=== PATIENT | male | born 2000 | race Caucasian/White ===

== ENCOUNTER 2024-03-30 22:22 | Emergency (ER) | payer OTHER ==
[2024-03-30 22:55] VITALS: TEMP 97.5
[2024-03-30] MEDS: HYDROmorphone 1 MG/ML 1 ML SYRINGE IM STA (23:35)
[2024-03-30] MEDS: DEXAMETHASONE SOD PHOSPHATE 10 MG/ML 1 ML VIAL IM STA (23:35)
[2024-03-31] MEDS: KETAMINE 50 MG/ML 10 ML VIAL IM ONE (00:48)
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
--- NOTE | 2024-03-31 01:35 | XR ---
EXAM: XR Left Wrist Complete, 3 or More Views CLINICAL HISTORY: ITS.REASON XR Reason: pain, injury deformity TECHNIQUE: Frontal, lateral and oblique views of the left wrist. COMPARISON: No relevant prior studies available. FINDINGS: Bones/joints: Nondisplaced, intra-articular fracture of the left radius, with minimal dorsal angulation. Avulsion of the distal tip of the ulnar styloid. No dislocation. Soft tissues: Unremarkable. No radiopaque foreign body. IMPRESSION: Nondisplaced, intra-articular fracture of the left radius, with minimal dorsal angulation. Avulsion of the distal tip of the ulnar styloid.
--- NOTE | 2024-03-31 02:06 | XR ---
EXAM: XR Left Wrist Complete, 3 or More Views CLINICAL HISTORY: ITS.[email or web address] XR Reason: reduction TECHNIQUE: Frontal, lateral and oblique views of the left wrist. COMPARISON: 10:59 PM. FINDINGS: Bones/joints: Distal radial and ulnar stylet fractures, with improving alignment. Soft tissues: Unremarkable. No radiopaque foreign body. IMPRESSION: Distal radial and ulnar stylet fractures, with improving alignment.
[2024-03-31] MEDS: ONDANSETRON 4 MG/2 ML VIAL IVP STA ×2 (03:00→07:21)
[2024-03-31] MEDS: METOCLOPRAMIDE 5 MG/ML 2 ML VIAL IVP STA (03:59)
[2024-03-31 04:00] VITALS: RESP 18
[2024-03-31] MEDS: SODIUM CHLORIDE 0.9% 1,000 ML IV ONE (07:21)
[2024-03-31 08:05] VITALS: BP 124/78; PULSE 68
== END 2024-03-31 08:13 | disposition home or self-care (01) ==
LOC: EC 22:22
DX: S52.502A Unspecified fracture of the lower end of left radius, initial encounter for closed fracture (principal); F17.290 Nicotine dependence, other tobacco product, uncomplicated; V89.2XXA Person injured in unspecified motor-vehicle accident, traffic, initial encounter
CPT/HCPCS: 73100 ×2; 99284; 99152; 25605; 96374; 96375; 96376; 96361; 96372 ×3; J1100; J2765; J2405; J1170